=== PATIENT | female | born 1995 | race Caucasian/White ===

== ENCOUNTER 2019-04-28 16:36 | Emergency (ER) | payer BC, MEDICAID ==
--- NOTE | 2019-04-28 17:14 | ERPHSYRPT ---
- History of Present Illness Time Seen by Provider: 04/28/19 17:00 Historian: patient Exam Limitations: no limitations Patient Subjective Stated Complaint: Flank pain/abdominal pain Triage Nursing Assessment: Patient ambulated back to ED per self. Patient A+O X 3. Patient's skin pink, warm and dry. Patient complains of fredrick flank pain, abdominal pain and fever for 2 days. Patient states she noticed her urine was cloudy and foul smelling one week ago. Patient states pain in back is sharp pain and abdominal pain is sharp and cramping. Patient complains of urgency upon urination. Patient's abdomen round and soft with BS X 4. Patient also complains of fever 2 days the highest being 104.0. Patient also complains of fever blisters to mouth after she got a fever. Physician History: Back pain - bilateral sides; urine foul smelling. Cramping abdominal pain; burning, urgency with urination. Timing/Duration: day(s) (2) Activities at Onset: none Quality: burning, cramping, fullness, pressure Abdominal Pain Onset Location: RLQ, LLQ, suprapubic Pain Radiation: back Severity of Pain-Max: moderate Severity of Pain-Current: moderate Modifying Factors: Improves With: nothing Allergies/Adverse Reactions: No Known Drug Allergies Allergy (Unverified 04/28/19 16:47) Home Medications: Buprenorphine HCl/Naloxone HCl [Buprenorphin-Naloxon 8-2 mg Sl] 1 tab PO DAILY 04/28/19 [History] Hx Influenza Vaccination/Date Given: No Hx Pneumococcal Vaccination/Date Given: No Immunizations Up to Date: Yes - Review of Systems Constitutional: Malaise Respiratory: No Symptoms, No Cough Cardiac: No Symptoms, No Chest Pain Abdominal/Gastrointestinal: Abdominal Pain, Nausea, No Vomiting (Almost - just prior to ER admission) Genitourinary Symptoms: Dysuria, Frequency, Urgency All Other Systems: Reviewed and Negative - Past Medical History Pertinent Past Medical History: No Neurological History: No Pertinent History ENT History: No Pertinent History Cardiac History: Hypertension Respiratory History: No Pertinent History Endocrine Medical History: No Pertinent History Musculoskeletal History: No Pertinent History GI Medical History: No Pertinent History History: No Pertinent History Psycho-Social History: Depression Female Reproductive Disorders: No Pertinent History Other Medical History: Hx of Chlamydia, and HEP C - Past Surgical History Past Surgical History: Yes Neuro Surgical History: No Pertinent History Cardiac: No Pertinent History Respiratory: No Pertinent History Gastrointestinal: No Pertinent History Genitourinary: No Pertinent History Musculoskeletal: Other Female Surgical History: No Pertinent History Other Surgical History: Surgery for Cyst to tail bone X 2. - Social History Smoking Status: Never smoker Exposure to second hand smoke: Yes Drug Use: none Patient Lives Alone: No - Female History Hx Last Menstrual Period: last month Hx Now: No - Nursing Vital Signs Nursing Vital Signs: Initial Vital Signs Temperature 98.4 F 04/28/19 16:48 Pulse Rate 98 H 04/28/19 16:48 Respiratory Rate 18 04/28/19 16:48 Blood Pressure 126/90 04/28/19 16:48 O2 Sat by Pulse Oximetry 99 04/28/19 16:48 Pain Scale Pain Intensity 5 - Physical Exam General Appearance: no apparent distress Eye Exam: PERRL/EOMI Ears, Nose, Throat Exam: normal ENT inspection Neck Exam: normal inspection, supple Respiratory Exam: normal breath sounds, lungs clear, airway intact, No chest tenderness, No respiratory distress Cardiovascular Exam: regular rate/rhythm, normal heart sounds, normal peripheral pulses, No edema Gastrointestinal/Abdomen Exam: soft, normal bowel sounds, tenderness (lower abdomen and suprapubic) Extremity Exam: normal inspection, normal range of motion Neurologic Exam: alert, oriented x 3, cooperative SpO2 Interpretation: normal SpO2: 99 O2 Delivery: Room Air - Course Nursing assessment & vital signs reviewed: Yes Ordered Tests: Active Orders 24 hr Category Date Time Status ABDOMEN AND PELVIS W CONTRAST [CT] Stat Exams 04/28/19 18:58 Taken CBC W DIFF Stat Lab 04/28/19 18:20 Completed CMP Stat Lab 04/28/19 18:20 Completed CULTURE,URINE Stat Lab 04/28/19 17:26 Received HCG QUALITATIVE,SERUM Stat Lab 04/28/19 18:20 Completed UA W/RFX UR CULTURE Stat Lab 04/28/19 17:26 Completed Medication Summary Discontinued Medications Generic Name Dose Route Start Last Admin Trade Name Freq PRN Reason Stop Dose Admin Ciprofloxacin 500 mg 04/28/19 22:00 04/28/19 21:05 Cipro 500 Mg PO 05/28/19 21:59 500 mg BID KYMBERLY Administration Ciprofloxacin Confirm 04/28/19 21:04 Cipro 500 Mg Administered 04/28/19 21:05 Dose 500 mg .ROUTE .STK-MED ONE Sodium Chloride 1,000 mls @ 999 mls/hr 04/28/19 18:01 04/28/19 19:29 Sodium Chloride 0.9% 1000 Ml IV 04/28/19 19:01 Infused .Q1H1M STA Infusion Sodium Chloride Confirm 04/28/19 18:11 Sodium Chloride 0.9% 1000 Ml Administered 04/28/19 18:12 Dose 1,000 mls @ ud .ROUTE .STK-MED ONE Ondansetron HCl 4 mg 04/28/19 18:01 04/28/19 18:29 Zofran 4 Mg/2 Ml Vial IV 04/28/19 18:02 4 mg STAT ONE Administration Ondansetron HCl Confirm 04/28/19 18:11 Zofran 4 Mg/2 Ml Vial Administered 04/28/19 18:12 Dose 4 mg .ROUTE .STK-MED ONE Lab/Rad Data: Laboratory Result Diagrams 04/28/19 18:20 04/28/19 18:20 Laboratory Results 04/28/19 04/28/19 04/28/19 Range/Units 18:20 18:20 18:20 WBC 9.7 (4.0-10.5) K/mm3 RBC 4.06 L (4.1-5.4) M/mm3 Hgb 13.1 (12.0-16.0) gm/dl Hct 37.9 (35-47) % MCV 93.3 (78-100) fl MCH 32.2 H (26-32) pg MCHC 34.6 (32-36) g/dl RDW 12.3 (11.5-14.0) % Plt Count 202 (150-450) K/mm3 MPV 10.2 H (6-9.5) fl Gran % 77.9 H (36.0-66.0) % Eos # (Auto) 0.09 (0-0.5) Absolute Lymphs (auto) 1.13 (1.0-4.6) Absolute Monos (auto) 0.90 (0.0-1.3) Lymphocytes % 11.6 L (24.0-44.0) % Monocytes % 9.2 (0.0-12.0) % Eosinophils % 0.9 (0.00-5.0) % Basophils % 0.4 (0.0-0.4) % Absolute Granulocytes 7.57 H (1.4-6.9) Basophils # 0.04 (0-0.4) Sodium 140 (137-145) mmol/L Potassium 4.3 (3.5-5.1) mmol/L Chloride 105 (98-107) mmol/L Carbon Dioxide 26 (22-30) mmol/L Anion Gap 13.6 (5-15) MEQ/L BUN 11 (7-17) mg/dL Creatinine 0.73 (0.52-1.04) mg/dL Estimated GFR > 60.0 ML/MIN Glucose 136 H (74-106) mg/dL Calcium 9.4 (8.4-10.2) mg/dL Total Bilirubin 0.50 (0.2-1.3) mg/dL AST 21 (14-36) U/L ALT 23 (0-35) U/L Alkaline Phosphatase 71 (38-126) U/L Serum Total Protein 7.8 (6.3-8.2) g/dL Albumin 4.1 (3.5-5.0) g/dL Serum , Qual NEGATIVE (Negative) Urine Color (YELLOW) Urine Appearance (CLEAR) Urine pH (5-6) Ur Specific [place] (1.005-1.025) Urine Protein (Negative) Urine Ketones (NEGATIVE) Urine Blood (0-5) Afshin/ul Urine Nitrite (NEGATIVE) Urine Bilirubin (NEGATIVE) Urine Urobilinogen (0-1) mg/dL Ur Leukocyte Esterase (NEGATIVE) Urine WBC (Auto) (0-5) /HPF Urine RBC (Auto) (0-2) /HPF U Epithel Cells (Auto) (FEW) /HPF Urine Bacteria (Auto) (NEGATIVE) /HPF Urine Mucus (Auto) (NEGATIVE) /HPF Urine Yeast (Budding) (NEGATIVE) /HPF Urine Culture Reflexed (NO) Urine Glucose (NEGATIVE) mg/dL 04/28/19 Range/Units 17:26 WBC (4.0-10.5) K/mm3 RBC (4.1-5.4) M/mm3 Hgb (12.0-16.0) gm/dl Hct (35-47) % MCV (78-100) fl MCH (26-32) pg MCHC (32-36) g/dl RDW (11.5-14.0) % Plt Count (150-450) K/mm3 MPV (6-9.5) fl Gran % (36.0-66.0) % Eos # (Auto) (0-0.5) Absolute Lymphs (auto) (1.0-4.6) Absolute Monos (auto) (0.0-1.3) Lymphocytes % (24.0-44.0) % Monocytes % (0.0-12.0) % Eosinophils % (0.00-5.0) % Basophils % (0.0-0.4) % Absolute Granulocytes (1.4-6.9) Basophils # (0-0.4) Sodium (137-145) mmol/L Potassium (3.5-5.1) mmol/L Chloride (98-107) mmol/L Carbon Dioxide (22-30) mmol/L Anion Gap (5-15) MEQ/L BUN (7-17) mg/dL Creatinine (0.52-1.04) mg/dL Estimated GFR ML/MIN Glucose (74-106) mg/dL Calcium (8.4-10.2) mg/dL Total Bilirubin (0.2-1.3) mg/dL AST (14-36) U/L ALT (0-35) U/L Alkaline Phosphatase (38-126) U/L Serum Total Protein (6.3-8.2) g/dL Albumin (3.5-5.0) g/dL Serum , Qual (Negative) Urine Color YELLOW (YELLOW) Urine Appearance CLOUDY (CLEAR) Urine pH 6.0 (5-6) Ur Specific [place] 1.018 (1.005-1.025) Urine Protein 100 (Negative) Urine Ketones NEGATIVE (NEGATIVE) Urine Blood SMALL (0-5) Afshin/ul Urine Nitrite NEGATIVE (NEGATIVE) Urine Bilirubin NEGATIVE (NEGATIVE) Urine Urobilinogen NEGATIVE (0-1) mg/dL Ur Leukocyte Esterase LARGE (NEGATIVE) Urine WBC (Auto) >100 (0-5) /HPF Urine RBC (Auto) 11-15 (0-2) /HPF U Epithel Cells (Auto) FEW (FEW) /HPF Urine Bacteria (Auto) MODERATE (NEGATIVE) /HPF Urine Mucus (Auto) SLIGHT (NEGATIVE) /HPF Urine Yeast (Budding) Rare (NEGATIVE) /HPF Urine Culture Reflexed YES (NO) Urine Glucose NEGATIVE (NEGATIVE) mg/dL - Progress Progress: unchanged (NAD -) Progress Note: 04/28/19 21:00 NAD; educated re CT results; pyelonephritis clinically and by CT. Out patient treatment reasonable - no recent antibiotics and no allergies., and will follow upp with primary care providerl - Departure Departure Disposition: Home Clinical Impression: Pyelonephritis Condition: Good Critical Care Time: No Referrals: DOCTOR,NO FAMILY [Primary Care Provider] - Instructions: Urinary Tract Infections in Adults Additional Instructions: Take antibiotic as prescribed; follow up with primary care - call tomorrow for appointment next week. Tell them you are being treated for pyelonephritis and let them know how you are doing. Forms: Work/School Release Form Prescriptions: Ciprofloxacin [Cipro 500 MG] 500 mg PO BID #20 tablet
[2019-04-28 17:40] LABS: Appearance CLOUDY (CLEAR); Bacteria MODERATE /HPF (NEGATIVE); Bilirubin NEGATIVE (NEGATIVE); Blood SMALL Ery/ul (0-5); Epithelial Cells FEW /HPF (FEW); Glucose NEGATIVE (NEGATIVE); Ketones NEGATIVE (NEGATIVE); Leukocyte Esterase LARGE (NEGATIVE); Mucus SLIGHT /HPF (NEGATIVE); Nitrite NEGATIVE (NEGATIVE); Protein,Urine Dip 100 (Negative); Specific Gravity 1.018 (1.005-1.025); Urobilinogen NEGATIVE mg/dL (0-1); WBC >100 /HPF (0-5)
[2019-04-28 17:42] LABS: Budding Yeast Rare /HPF (NEGATIVE)
[2019-04-28] MEDS ORDERED: Sodium Chloride 0.9% 1000 ML 1,000 ML ONE (18:11)
[2019-04-28] MEDS ORDERED: Zofran 4 MG/2 ML VIAL ONE (18:11)
[2019-04-28] MEDS: Sodium Chloride 0.9% 1000 ML 1,000 ML IV STA (18:25)
[2019-04-28 18:26] LABS: BASOPHIL % 0.4 % (0.0-0.4); Basophil (Absolute #) 0.04 (0-0.4); Eosinophil % 0.9 % (0.00-5.0); Eosinophil (Absolute #) 0.09 (0-0.5); Granulocyte Absolute (ANC) 7.57 (1.4-6.9); Granulocytes % 77.9 % (36.0-66.0); Hematocrit 37.9 % (35-47); Hemoglobin 13.1 gm/dl (12.0-16.0); Lymphocyte (Absolute #) 1.13 (1.0-4.6); Lymphocytes % 11.6 % (24.0-44.0); Mean Cell Volume 93.3 fl (78-100); Mean Corpuscular Hgb Concent. 34.6 g/dl (32-36); Mean Platelet Volume 10.2 fl (6-9.5); Monocytes % 9.2 % (0.0-12.0); Platelet Count 202 K/mm3 (150-450); Red Blood Count 4.06 M/mm3 (4.1-5.4); Red Cell Distribution Width 12.3 % (11.5-14.0); White Blood Count 9.7 K/mm3 (4.0-10.5)
[2019-04-28] MEDS: Zofran 4 MG/2 ML VIAL IV ONE (18:29)
[2019-04-28 18:39] LABS: ALBUMIN 4.1 g/dL (3.5-5.0); ALKALINE PHOSPHATASE 71 U/L (38-126); ANION GAP 13.6 MEQ/L (5-15); BLOOD UREA NITROGEN 11 mg/dL (7-17); CHLORIDE 105 mmol/L (98-107); Calcium 9.4 mg/dL (8.4-10.2); Carbon Dioxide 26 mmol/L (22-30); Creatinine 1 0.73 mg/dL (0.52-1.04); Glucose 136 mg/dL (74-106); Potassium 4.3 mmol/L (3.5-5.1); SGOT/AST 21 U/L (14-36); SGPT/ALT 23 U/L (0-35); SODIUM 140 mmol/L (137-145); Total Protein 7.8 g/dL (6.3-8.2)
[2019-04-28 18:44] LABS: Mean Corpuscular Hemoglobin 32.2 pg (26-32)
[2019-04-28 18:59] VITALS: BP 108/67
[2019-04-28] MEDS ORDERED: Cipro 500 MG ONE (21:04)
[2019-04-28] MEDS: Cipro 500 MG PO SCH (21:05)
[2019-04-28 21:06] VITALS: O2SAT 99
[2019-04-28 21:30] VITALS: PULSE 87
--- NOTE | 2019-04-29 08:46 | XRAY ---
Indication: Pelvic pain. Fever. Discolored urine and burning sensation. Positive UTI. Multiple contiguous axial images obtained through the abdomen and pelvis using 80 cc Isovue 300 contrast only. Comparison: None Lung bases are clear. Heart is not enlarged. Noncontrasted stomach and bowel loops appear nonobstructed. Normal appendix. Minimal sigmoid diverticulosis. 3.4 cm right ovary cyst and IUD in situ. Tiny cul-de-sac fluid presumed physiologic from rupture/leaking cyst. No free air. Spleen is enlarged measuring 15 cm in greatest axial dimension. Both kidneys enhance and excrete. Left kidney demonstrates patchy cortical hypoattenuation is favoring nephritis. No hydronephrosis, hydroureter, or perinephric fluid. Remaining liver, gallbladder, pancreas, spleen, adrenal glands, kidneys, ureters, bladder, and aorta appear unremarkable. No pathologic retroperitoneal lymphadenopathy. Osseous structures intact. Impression: 1. Left renal cortical patchy hypoattenuations favoring nephritis. 2. 3.4 cm dominant right ovary cyst. Tiny cul-de-sac fluid presumed physiologic. 3. Incidental splenomegaly and IUD in situ. CT DI 27.98
== END 2019-04-28 21:30 | disposition home or self-care (01) ==
LOC: ED 16:36
DX: N12 Tubulo-interstitial nephritis, not specified as acute or chronic (principal)
CPT/HCPCS: 36000; 36415; 74177; 80053; 81001; 81025; 85025; 87077; 87086; 87186; 96360; 96374; 99284; J2405; A9270-GY